=== PATIENT | male | born 1985 | race Caucasian/White ===

== ENCOUNTER 2017-09-14 02:07 | Emergency (ER) | payer SELFPAY ==
[2017-09-14] MEDS ORDERED: IBUPROFEN 200 MG TAB PO ONE (02:59)
[2017-09-14] MEDS ORDERED: LIDOCAINE 1% MPF 5 ML VIAL ONE (02:59)
[2017-09-14] MEDS ORDERED: ACETAMINOPHEN 500 MG TAB ONE (02:59)
--- NOTE | 2017-09-14 03:02 | ER ---
Nurse's Notes [facility] Name: Venkat Mcgraw Age: 31 yrs Sex: Male : 1985 Arrival Date: 09/14/2017 Time: 02:08 Bed 5 Private MD: Diagnosis: Left Foot Sting Ray sting Presentation: 09/14 02:20 Presenting complaint: Patient states: that at 2300 he was stung on the left top of the foot by a sting ray. Puncture site noted. No bleeding noted. Transition of care: patient was not received from another setting of care. Onset of symptoms was September 13, 2017 at 23:00. Risk Assessment: Do you want to hurt yourself or someone else? Patient reports no desire to harm self or others. Initial Sepsis Screen: Does the patient meet any 2 criteria? No. Patient's initial sepsis screen is negative. Does the patient have a suspected source of infection? No. Patient's initial sepsis screen is negative. Care prior to arrival: None. 02:20 Method Of Arrival: Wheelchair 02:20 Acuity: MARYANNE 4 Historical: - Allergies: 02:21 No Known Allergies; - Home Meds: 02:21 None [Active]; fc - PMHx: 02:21 None; fc - PSHx: 02:21 neck surg; leg surg; - Immunization history:: Last tetanus immunization: up to date. - Social history:: Smoking status: Patient uses tobacco products, smokes one-half pack cigarettes per day. - Ebola Screening: : Patient negative for fever greater than or equal to 101.5 degrees Fahrenheit, and additional compatible Ebola Virus Disease symptoms Patient denies exposure to infectious person Patient denies travel to an Ebola-affected area in the 21 days before illness onset. - Family history:: not pertinent. - Hospitalizations: : No recent hospitalization is reported. Screenin:22 Abuse screen: Denies threats or abuse. Nutritional screening: No deficits noted. Tuberculosis screening: No symptoms or risk factors identified. Fall Risk None identified. Assessment: 02:20 General: Appears in no apparent distress. uncomfortable, Behavior is calm, cooperative, tl2 appropriate for age. Pain: Complains of pain in dorsum of left foot Pain does not radiate. Neuro: Level of Consciousness is awake, alert, obeys commands, Oriented to person, place, time, situation. Cardiovascular: Denies chest pain. Respiratory: Airway is patent Respiratory effort is even, unlabored, Respiratory pattern is regular, symmetrical. GI: No signs and/or symptoms were reported involving the gastrointestinal system. : No deficits noted. Derm: Skin is pink, warm \T\ dry. Injury Description: Puncture sustained to dorsum of left foot is superficial, was sustained 1-2 hours ago. 03:01 Reassessment: Patient appears in no apparent distress at this time. Patient and/or tl2 family updated on plan of care and expected duration. Pain level reassessed. Patient is alert, oriented x 3, equal unlabored respirations, skin warm/dry/pink. Pt denied need for lidocaine and stated the hot water was successful. notified. Awaiting discharge Patient states feeling better. 03:07 Reassessment: Patient appears in no apparent distress at this time. Patient and/or tl2 family updated on plan of care and expected duration. Pain level reassessed. Patient is alert, oriented x 3, equal unlabored respirations, skin warm/dry/pink. Pt verbalized understanding of discharge instructions, need for follow up and prescription usage. Vital Signs: 02:21 BP 120 / 79; Pulse 63; Resp 18; Temp 98.5(O); Pulse Ox 98% on R/A; Weight 58.97 kg (R); fc Height 5 ft. 10 in. (177.80 cm) (R); Pain 8/10; 03:01 BP 109 / 78; Pulse 78; Resp 18; Pulse Ox 97% on R/A; Pain 1/10; tl2 02:21 Body Mass Index 18.65 (58.97 kg, 177.80 cm) ED Course: 02:08 Patient arrived in ED. ds1 02:20 Triage completed. fc 02:21 Héctor Yeh MD is Attending Physician. wa 02:21 Arm band placed on Patient placed in an exam room. fc 02:22 Patient has correct armband on for positive identification. Call light in reach. fc 02:22 No provider procedures requiring assistance completed. Patient did not have IV access fc during this emergency room visit. 02:52 X-ray completed. Portable x-ray completed in exam room. Patient tolerated procedure kp1 well. 02:54 Foot Left 3 View XRAY In Process Unspecified. EDMS 03:07 Levin, Milli, RN is Primary Nurse. tl2 Administered Medications: 03:02 Drug: Tylenol 1000 mg Route: PO; tl2 03:09 Follow up: Response: No adverse reaction; Medication administered at discharge. tl2 03:02 Drug: Motrin 600 mg Route: PO; tl2 03:09 Follow up: Response: No adverse reaction; Medication administered at discharge. tl2 Outcome: 03:02 Discharge ordered by MD. king 03:07 Discharged to home ambulatory. tl2 03:07 Condition: stable 03:07 Discharge instructions given to patient, Instructed on discharge instructions, follow up and referral plans. medication usage, Demonstrated understanding of instructions, follow-up care, medications, Prescriptions given X 1. 03:09 Patient left the ED. tl2 Signatures: Dispatcher [employer] EDMS Maryuri Akins RN RN Misty Skelton ds1 Milli Levin RN RN tl2 Margoth Myers kp1 Héctor Yeh MD MD wa
--- NOTE | 2017-09-14 03:03 | EDPHYS ---
Physician Documentation [facility] Name: Venkat Mcgraw Age: 31 yrs Sex: Male : 1985 Arrival Date: 09/14/2017 Time: 02:08 Bed 5 Private MD: ED Physician Héctor Yeh HPI: 09/14 02:55 This 31 yrs old Male presents to ER via Wheelchair with complaints of Sting wa Ray. 02:55 The patient presents with an injury, pain, that is acute, sting ray sting. The wa complaints affect the left foot. Context: [place] sting ray sting, Mechanism of Injury: sting the patient can fully bear weight, the patient is able to ambulate, with mild difficulty. Onset: The symptoms/episode began/occurred just prior to arrival. Modifying factors: The symptoms are alleviated by nothing, the symptoms are aggravated by nothing. Associated signs and symptoms: The patient has no apparent associated signs or symptoms. Severity of symptoms: At their worst the symptoms were moderate, in the emergency department the symptoms are unchanged. The patient has not experienced similar symptoms in the past. The patient has not recently seen a physician. Historical: - Allergies: 02:21 No Known Allergies; fc - Home Meds: 02: None [Active]; fc - PMHx: 02:21 None; fc - PSHx: 02:21 neck surg; leg surg; fc - Immunization history:: Last tetanus immunization: up to date. - Social history:: Smoking status: Patient uses tobacco products, smokes one-half pack cigarettes per day. - Ebola Screening: : Patient negative for fever greater than or equal to 101.5 degrees Fahrenheit, and additional compatible Ebola Virus Disease symptoms Patient denies exposure to infectious person Patient denies travel to an Ebola-affected area in the 21 days before illness onset. - Family history:: not pertinent. - Hospitalizations: : No recent hospitalization is reported. ROS: 02:56 MS/extremity: Positive for pain, swelling, tenderness, of the dorsum of left foot, wa Negative for abrasion, deformity, ecchymosis. 02:56 Constitutional: Negative for fever, chills, and weight loss, Eyes: Negative for injury, pain, redness, and discharge, ENT: Negative for injury, pain, and discharge, Neck: Negative for injury, pain, and swelling, Cardiovascular: Negative for chest pain, palpitations, and edema, Respiratory: Negative for shortness of breath, cough, wheezing, and pleuritic chest pain, Abdomen/GI: Negative for abdominal pain, nausea, vomiting, diarrhea, and constipation, Back: Negative for injury and pain, Neuro: Negative for headache, weakness, numbness, tingling, and seizure, Psych: Negative for depression, anxiety, suicide ideation, homicidal ideation, and hallucinations. 02:56 MS/extremity: Positive for pain, tenderness, of the dorsum of left foot. 02:56 Skin: Positive for swelling, of the left foot and dorsum of left foot. Exam: 02:57 Constitutional: This is a well developed, well nourished patient who is awake, alert, wa and in no acute distress. Head/Face: Normocephalic, atraumatic. Eyes: Pupils equal round and reactive to light, extra-ocular motions intact. Lids and lashes normal. Conjunctiva and sclera are non-icteric and not injected. Cornea within normal limits. Periorbital areas with no swelling, redness, or edema. ENT: Nares patent. No nasal discharge, no septal abnormalities noted. Tympanic membranes are normal and external auditory canals are clear. Oropharynx with no redness, swelling, or masses, exudates, or evidence of obstruction, uvula midline. Mucous membranes moist. Neck: Trachea midline, no thyromegaly or masses palpated, and no cervical lymphadenopathy. Supple, full range of motion without nuchal rigidity, or vertebral point tenderness. No Meningismus. Cardiovascular: Regular rate and rhythm with a normal S1 and S2. No gallops, murmurs, or rubs. Normal PMI, no JVD. No pulse deficits. Respiratory: Lungs have equal breath sounds bilaterally, clear to auscultation and percussion. No rales, rhonchi or wheezes noted. No increased work of breathing, no retractions or nasal flaring. Abdomen/GI: Soft, non-tender, with normal bowel sounds. No distension or tympany. No guarding or rebound. No evidence of tenderness throughout. Back: No spinal tenderness. No costovertebral tenderness. Full range of motion. Neuro: Awake and alert, GCS 15, oriented to person, place, time, and situation. Cranial nerves II-XII grossly intact. Motor strength 5/5 in all extremities. Sensory grossly intact. Cerebellar exam normal. Normal gait. Psych: Awake, alert, with orientation to person, place and time. Behavior, mood, and affect are within normal limits. 02:57 Skin: injury, bite(s), superficial, of the left foot and dorsum of left foot, lesion(s), noted, and can be described as Vital Signs: 02:21 BP 120 / 79; Pulse 63; Resp 18; Temp 98.5(O); Pulse Ox 98% on R/A; Weight 58.97 kg (R); fc Height 5 ft. 10 in. (177.80 cm) (R); Pain 8/10; 03:01 BP 109 / 78; Pulse 78; Resp 18; Pulse Ox 97% on R/A; Pain 1/10; tl2 02:21 Body Mass Index 18.65 (58.97 kg, 177.80 cm) fc MDM: 02:[address] 02:58 Differential diagnosis: sting ray sting. warm water soaks. pain control. x-ray r/o FB. wa reassess. Data reviewed: vital signs, nurses notes, radiologic studies. Test interpretation: by ED physician or midlevel provider: L foot x-ray: no FB. . Response to treatment: the patient's symptoms have markedly improved after treatment. 09/14 02:36 Order name: Foot Left 3 View XRAY Administered Medications: 03:02 Drug: Tylenol 1000 mg Route: PO; tl2 03:09 Follow up: Response: No adverse reaction; Medication administered at discharge. tl2 03:02 Drug: Motrin 600 mg Route: PO; tl2 03:09 Follow up: Response: No adverse reaction; Medication administered at discharge. tl2 Disposition: 18 03:02 Discharged to Home. Impression: Left Foot Sting Ray sting. - Condition is Stable. - Prescriptions for Ibuprofen 600 mg Oral Tablet - take 1 tablet by ORAL route every 6 hours As needed take with food; 30 tablet. - Medication Reconciliation Form, Thank You Letter, Antibiotic Education, Prescription Opioid Use form. - Follow up: Private Physician; When: 1 - 2 days; Reason: Recheck today's complaints. - Problem is new. - Symptoms have improved. Signatures: Dispatcher [employer] EDMS Maryuri Akins RN RN Milli Levin RN RN tl2 Héctor Yeh MD MD wa Corrections: (The following items were deleted from the chart) 02:53 02:34 Foot Right 3 View+RAD.RAD.BRZ ordered. EDMS EDMS 03:09 03:02 09/14/2017 03:02 Discharged to Home. Impression: Left Foot Sting Ray sting. tl2 Condition is Stable. Forms are Medication Reconciliation Form, Thank You Letter, Antibiotic Education, Prescription Opioid Use. Follow up: Private Physician; When: 1 - 2 days; Reason: Recheck today's complaints. Problem is new. Symptoms have improved. wa
--- NOTE | 2017-09-16 08:54 | RAD REPORT ---
EXAM DESCRIPTION: RAD - Foot Left 3 View - 09/16/2017 6:59 am CLINICAL HISTORY: sting ray sting Animal bite COMPARISON: No comparisons FINDINGS: Soft tissue swelling is noted about the foot. Subtle hyperdensities are seen involving the distal great toe region which may be related to recent animal bite/foreign bodies. Direct visualizat ion is advised. An acute fracture is not seen.
== END 2017-09-14 03:09 | disposition home or self-care (01) ==
LOC: ER 02:07
DX: T63.511A Toxic effect of contact with stingray, accidental (unintentional), initial encounter (principal); Y92.832 Beach as the place of occurrence of the external cause; F17.210 Nicotine dependence, cigarettes, uncomplicated
CPT/HCPCS: 99283